=== PATIENT | female | born 1990 | race Caucasian/White ===

== ENCOUNTER 2017-04-11 08:44 | Emergency (ER) | payer MEDICAID ==
[~2017-04-11] VITALS: Ht 157.5 cm; Wt 47.2 kg
[2017-04-11 08:55] VITALS: BP_SYST 101
[2017-04-11 10:16] LABS: INFLUENZA A&B ANTIGEN SCREEN NEGATIVE FOR A & B (NEGATIVE)
[2017-04-11 10:27] LABS: STREPTOCOCCUS A SCREEN (RAPID) NEGATIVE (NEGATIVE)
[2017-04-11 10:34] VITALS: BP_SYST 105
== END 2017-04-11 10:34 | disposition home or self-care (01) ==
LOC: SED 08:44
DX: J20.9 Acute bronchitis, unspecified (principal); Z88.1 Allergy status to other antibiotic agents; Z89.611 Acquired absence of right leg above knee
CPT/HCPCS: 36415; 86403; 86710; 87081; 99284